=== PATIENT | female | born 1985 ===

== ENCOUNTER 2020-03-16 10:00 | Outpatient (RCR) | payer OTHER, SELFPAY ==
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
[2020-02-13 13:12] VITALS: BMI 36.6
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
--- NOTE | 2020-02-23 09:46 | PC.NURSE ---
I called the clients [facility] therapist Jim Ortega. I left a message to inform him of the clients progress and expected end date.
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
--- NOTE | 2020-02-26 14:41 | PC.NURSE ---
I called client to review her schedule/ remaining tome in PHP. there was no answer and I left a message to call.
--- NOTE | 2020-02-26 14:49 | PC.NURSE ---
I spoke with Hailey about her schedule. She will be here this week and next week PHP and drop down to IOP the week of 03/08 and end the week of 03/16.
--- NOTE | 2020-03-01 14:08 | PC.NURSE ---
When the client did not attend community meeting I phoned her and she stated that she overslept. She states that she is okay and will be in tomorrow.
--- NOTE | 2020-03-02 14:09 | PC.NURSE ---
I phoned the client because she appeared very sad and wanted to attend a half day. She states that she is very tired from not sleeping well. We discussed her treatment and she has the remainder of this week and will drop down to IOP next week. She states that she will be safe.
--- NOTE | 2020-03-03 15:07 | P.PNPSP_ITS ---
Subjective Subjective Date of Service: 03/03/20 Reason For Visit: depression Interim History: Patient reporting difficulty focusing, racing thoughts, difficulty sleeping, negative internal dialogue and intrusive memories. Mirtazipine initially helped with sleep, but no finds that it is no longer effective Medication Compliance: Yes Side effects from medications: Yes (Reporting headaches since Lexapro was increased ) Attending Groups: Yes Review of Systems Constitutional: Reports as per [facility] Mental Status Exam Mental Status Exam Patient Appearance: Well Grooomed and Appropriate Patient Orientation: Person, Place, Time and Situation Level of Consciousness: Awake, Appropriate and Alert Patient Behavior: Guarded and Anxious Mood Description: Anxious and Blunted Affect Description: Anxious and Blunted Ability to Follow Directions: Excellent Speech Pattern: Clear Hallucinations: None Delusions: Not Present Thought Process: Racing, Rumination and Goal Oriented Thought Content: positive for Racing Depressive Symptoms: Increased Anxiety, Insomnia, Difficulty Sleeping, Crying Spells, Feelings of Worthlessness, Unhappiness, Low Self Esteem and Difficulty Concentrating Judgement: Good Diagnostics Vital Signs (24Hr): Body Mass Index 36.6 Assessment & Plan Assessment & Plan (1) PTSD (post-traumatic stress disorder): Status: Acute Code(s): F43.10 - Post-traumatic stress disorder, unspecified Assessment and Plan: -added daytime dose of prazosin to address anxiety -increased mirtazipine HS dose -no additional changes (2) Recurrent major depression-severe: Status: Acute Code(s): F33.2 - Major depressive disorder, recurrent severe without psychotic features Certification I certify that partial hospital treatment is medically necessary due to the symptoms and problems resulting from the patient's mental illness and the failure to treat the patient at the partial hospital level of care would likely result in the patient requiring inpatient psychiatric care which could not be prevented at a less intensive level of care. Greater than 50% of the session was spent on counseling and/or coordination of care Discharge Plan Discharge Attending provider: Daniel Kulkarni Primary Care Provider: Zoë Cason Medications: New risperidone [Risperdal] 1 mg tablet 1 mg PO BID MDD for PTSD symptom grounding PRN (Reason: anxiety) Qty: 14 RF: 0 mirtazapine 15 mg tablet 15 mg PO BEDTIME Qty: 14 RF: 0 prazosin 1 mg capsule 1 mg PO DAILY Qty: 14 RF: 0 Discontinued trazodone 50 mg Tablet 50 mg PO BEDTIME RF: 0 hydroxyzine HCl 25 mg Tablet 25 mg PO BEDTIME RF: 0 No Action famotidine 10 mg Tablet 10 mg PO BID RF: 0 prazosin 2 mg Capsule 2 mg PO BEDTIME RF: 0 nicotine 7 mg/24 hr Patch 24 Hour 1 patch TRANSDERMAL Q24H RF: 0 Lexapro 20 mg 20 mg PO DAILY RF: 0 Referrals: Zoë Cason PA-C [Primary Care Provider] - Telehealth Telehealth Location of provider rendering services: practice address Location of patient: address on file Patient Identification confirmed using: Name, : Yes Telehealth method: video Patient verbally consented to treatment: Yes Patient verbally consented to billing insurance company: Yes Time spent with patient (mins): 20
--- NOTE | 2020-03-10 12:15 | HO.PHPPROGNO ---
Subjective Subjective Date of Service: 03/10/20 Reason For Visit: depression Interim History: Patient reports feeling like nothing is working Experiencing significant anxiety anytime she has to leave her home. She feels like she has a short temper with some people and gets easily triggered Does report that sleep improved with increase in mirtazipine and nightmares are no longer present Headaches have also improved Medication Compliance: Yes Side effects from medications: No Attending Groups: Yes Review of Systems Psychiatric: Reports abnormal sleep pattern, Reports anxiety, Reports depression, Reports difficulty concentrating, Reports hopelessness, Reports irritability, Reports anhedonia and Reports mood swings Mental Status Exam Mental Status Exam Patient Appearance: Appropriate Level of Consciousness: Awake, Appropriate and Alert Patient Behavior: Anxious Mood Description: Anxious and Apprehensive Affect Description: Anxious and Apprehensive Ability to Follow Directions: Excellent Speech Pattern: Clear Hallucinations: None Thought Process: Rumination Thought Content: positive for Goal Oriented Depressive Symptoms: Increased Anxiety, Increased Irritability, Feelings of Worthlessness, Isolating-Friends/Family, Feelings of Guilt and Difficulty Concentrating Judgement: Good Diagnostics Vital Signs (24Hr): Body Mass Index 36.6 Assessment & Plan Assessment & Plan (1) PTSD (post-traumatic stress disorder): Status: Acute Code(s): F43.10 - Post-traumatic stress disorder, unspecified Assessment and Plan: -discussed taking mirtazipine earlier in the evening to see if that impacted amotivation during the day (2) Recurrent major depression-severe: Status: Acute Code(s): F33.2 - Major depressive disorder, recurrent severe without psychotic features Certification I certify that partial hospital treatment is medically necessary due to the symptoms and problems resulting from the patient's mental illness and the failure to treat the patient at the partial hospital level of care would likely result in the patient requiring inpatient psychiatric care which could not be prevented at a less intensive level of care. Greater than 50% of the session was spent on counseling and/or coordination of care Discharge Plan Discharge Attending provider: Daniel Kulkarni Primary Care Provider: Zoë Cason Medications: New risperidone [Risperdal] 1 mg tablet 1 mg PO BID MDD for PTSD symptom grounding PRN (Reason: anxiety) Qty: 14 RF: 0 mirtazapine 15 mg tablet 15 mg PO BEDTIME Qty: 14 RF: 0 prazosin 1 mg capsule 1 mg PO DAILY Qty: 14 RF: 0 Discontinued trazodone 50 mg Tablet 50 mg PO BEDTIME RF: 0 hydroxyzine HCl 25 mg Tablet 25 mg PO BEDTIME RF: 0 No Action famotidine 10 mg Tablet 10 mg PO BID RF: 0 prazosin 2 mg Capsule 2 mg PO BEDTIME RF: 0 nicotine 7 mg/24 hr Patch 24 Hour 1 patch TRANSDERMAL Q24H RF: 0 Lexapro 20 mg 20 mg PO DAILY RF: 0 Referrals: Zoë Cason PA-C [Primary Care Provider] - Telehealth Telehealth Location of provider rendering services: practice address Location of patient: address on file Patient Identification confirmed using: Name, : Yes Telehealth method: video Patient verbally consented to treatment: Yes Patient verbally consented to billing insurance company: Yes Time spent with patient (mins): 15
--- NOTE | 2020-03-15 09:24 | PC.NURSE ---
I left a message for client to call re scheduled but absent
--- NOTE | 2020-03-15 14:35 | PC.NURSE ---
The client did not come in today and did not call. I spoke with her in the afternoon. She explains that she didnt pay her bill and did not have internet service. She is going to pay her bill today and will be in Sunday and Sunday. Sunday will be her last day.
--- NOTE | 2020-03-16 17:02 | P.PNPSP_ITS ---
Subjective Subjective Date of Service: 03/16/20 Reason For Visit: depression Interim History: Previous notes reviewed, including medication trials patient scheduled to discharge tomorrow reports she is feeling stuck and feeling that none of her medicaitons are working. Did not take them yesterday because she was angry about this, but resumed today. Denies any current side effects from current regimen, just feels they are not effective as she is still quite depressed, feeling amotivated and continues with high anxiety anytime she has to plan to leave her home. Medication Compliance: Yes (reports she missed on day ) Side effects from medications: No Attending Groups: Yes Review of Systems Constitutional: Reports as per [facility] Mental Status Exam Mental Status Exam Narrative: unable to have video visit due to poor connection. Patient Behavior: Guarded Mood Description: Withdrawn, Anxious, Angry and Apprehensive Speech Pattern: Clear Hallucinations: None Delusions: Not Present Thought Process: Rumination Thought Content: positive for Racing and positive for Circumstantial Depressive Symptoms: Increased Anxiety, Increased Irritability, Crying Spells, Feelings of Worthlessness, Hopelessness, Isolating-Friends/Family, Feelings of Guilt and Unhappiness Judgement: Good Diagnostics Vital Signs (24Hr): Body Mass Index 36.6 Assessment & Plan Assessment & Plan (1) PTSD (post-traumatic stress disorder): Status: Acute Code(s): F43.10 - Post-traumatic stress disorder, unspecified Assessment and Plan: Discussed successes with medication including ability to sleep and d/c of nightmares Based on plan for discharge tomorrow not appropriate to make additional change to regimen Patient has appt with outpatient psychiatric provider on 03/22 (2) Recurrent major depression-severe: Status: Acute Code(s): F33.2 - Major depressive disorder, recurrent severe without psychotic features Certification I certify that partial hospital treatment is medically necessary due to the symptoms and problems resulting from the patient's mental illness and the failure to treat the patient at the partial hospital level of care would likely result in the patient requiring inpatient psychiatric care which could not be prevented at a less intensive level of care. Greater than 50% of the session was spent on counseling and/or coordination of care Discharge Plan Discharge Attending provider: Daniel Kulkarni Primary Care Provider: Zoë Cason Medications: New risperidone [Risperdal] 1 mg tablet 1 mg PO BID MDD for PTSD symptom grounding PRN (Reason: anxiety) Qty: 14 RF: 0 mirtazapine 15 mg tablet 15 mg PO BEDTIME Qty: 14 RF: 0 prazosin 1 mg capsule 1 mg PO DAILY Qty: 14 RF: 0 Discontinued trazodone 50 mg Tablet 50 mg PO BEDTIME RF: 0 hydroxyzine HCl 25 mg Tablet 25 mg PO BEDTIME RF: 0 No Action famotidine 10 mg Tablet 10 mg PO BID RF: 0 prazosin 2 mg Capsule 2 mg PO BEDTIME RF: 0 nicotine 7 mg/24 hr Patch 24 Hour 1 patch TRANSDERMAL Q24H RF: 0 Lexapro 20 mg 20 mg PO DAILY RF: 0 Referrals: Zoë Cason PA-C [Primary Care Provider] - Telehealth Telehealth Location of provider rendering services: practice address Location of patient: address on file Patient Identification confirmed using: Name, : Yes Telehealth method: voice only Patient verbally consented to treatment: Yes Patient verbally consented to billing insurance company: Yes Time spent with patient (mins): 15
--- NOTE | 2020-03-17 09:42 | PC.NURSE ---
Client no showed/no call today which is her scheduled last day. I left a message on her vm to call me to check in ansd discuss discharge plans
--- NOTE | 2020-03-17 14:23 | PC.NURSE ---
The client did not come in for her last scheduled day and did not call. I called and left two messages to return my call. When she didn't return the calls I phoned her mother Mabel Hunter. Mabel states that Hailey is fine she lives right next door and saw her this afternoon. Hailey will be discharged today as planned.
--- NOTE | 2020-03-17 14:27 | PC.NURSE ---
Addendum entered by Claire Ortiz [facility] 03/17/20 15:40: A message was left with Jim Ortega re clients discharge . Original Note: I was unable to reviewed clients discharge plan due to clients not attending her last day. She has outpatient providers at [facility]. I called her therapist Jim Ortega to inform him of her discharge.
== END 2020-03-16 23:55 | disposition left against medical advice (07) ==
LOC: HO.PHPA 10:00
PROVIDERS: PCP Physician Assistant; Visit Provider Psychiatry & Neurology Psychiatry
DX: F33.2 Major depressive disorder, recurrent severe without psychotic features (principal); F43.10 Post-traumatic stress disorder, unspecified; G47.00 Insomnia, unspecified; Z79.899 Other long term (current) drug therapy
CPT/HCPCS: 90791; 90792; 90853; 99212; 99213